=== PATIENT | female | born 1955 | race Caucasian/White ===

== ENCOUNTER → 2018-08-05 09:39 | Outpatient (CLI) | payer OTHER, SELFPAY ==
[2018-08-05 11:07] LABS: Creatinine Urine Random 81.6 mg/dL
[2018-08-05 11:10] LABS: Alanine Aminotransferase 29 IU/L (9-52); Albumin 4.1 g/dL (3.5-5.0); Albumin Globulin Ratio 1.4 (1.0-2.8); Alkaline Phosphatase 88 U/L (38-126); Aspartate Aminotransferase 24 IU/L (14-36); BUN Creatinine Ratio 13.3 (6-22); Blood Urea Nitrogen 12 mg/dL (7-17); Calcium 9.7 mg/dL (8.4-10.2); Carbon Dioxide 31 mmol/L (22-32); Chloride 98 mmol/L (98-107); Cholesterol 272 mg/dL (140-199); Estimated Glomerular Filt Rate > 60.0 mL/min (>60); Globulin 2.9 g/dL (1.7-4.1); Glucose 98 mg/dL (80-110); HDL Cholesterol 49 mg/dL (40-60); HEMOLYSIS < 15 (0-50); LDL Cholesterol Calculated 188 mg/dL (<100); Potassium 4.1 mmol/L (3.4-5.1); Sodium 139 mmol/L (137-145); Triglycerides 174 mg/dL (35-150)
[2018-08-05 11:13] LABS: Microalbumi Creatinin Ratio Ur 7.3 ug/mg CR (<30); Microalbumin Urine Random < 0.6 mg/dL (0-1.6)
== END ==
PROVIDERS: PCP Physician Assistant; Visit Provider Physician Assistant
DX: E78.2 Mixed hyperlipidemia (principal); I10 Essential (primary) hypertension
CPT/HCPCS: 36415; 80053; 80061; 82043; 82570

== ENCOUNTER → 2018-12-25 08:46 | Outpatient (CLI) | payer OTHER, SELFPAY ==
--- NOTE | 2018-12-25 08:47 | DI.MG.S_ITS ---
BILATERAL DIGITAL SCREENING MAMMOGRAM 3D/2D WITH CAD: 12/25/2018 CLINICAL: Routine screening. Family history of breast cancer. Comparison is made to exams dated: 09/05/2013 mammogram, 08/23/2014 mammogram, and 12/19/2016 mammogram - [facility]. There are scattered fibroglandular elements in both breasts. Current study was also evaluated with a Computer Aided Detection (CAD) system. There are mole markers on the right breast. There is a mole marker on the left breast. No significant masses, calcifications, or other findings are seen in either breast. There has been no significant interval change. IMPRESSION: NEGATIVE There is no mammographic evidence of malignancy. A 1 year screening mammogram is recommended. This exam was interpreted at Station ID: [id number]. NOTE: For mammograms, a report in lay terms will be sent to the patient. Approximately 15% of breast malignancies will not be visualized mammographically. In the management of a palpable breast mass, a negative mammogram must not discourage biopsy of a clinically suspicious lesion. Electronically Signed By: Edis shin/musa:12/27/2018 13:19:34 letter sent: Normal Exam ACR BI-RADS Category 1: Negative 3341F
== END ==
PROVIDERS: PCP Physician Assistant; Visit Provider Physician Assistant
DX: Z12.31 Encounter for screening mammogram for malignant neoplasm of breast (principal); Z80.3 Family history of malignant neoplasm of breast
CPT/HCPCS: 77063; 77067

== ENCOUNTER → 2019-04-02 07:54 | Outpatient (CLI) | payer OTHER, SELFPAY ==
[2019-04-02 09:28] LABS: Cholesterol 230 mg/dL (140-199); HDL Cholesterol 44 mg/dL (40-60); LDL Cholesterol Calculated 165 mg/dL (<100); Triglycerides 105 mg/dL (35-150)
== END ==
PROVIDERS: PCP Physician Assistant; Visit Provider Physician Assistant
DX: E78.2 Mixed hyperlipidemia (principal)
CPT/HCPCS: 36415; 80061

== ENCOUNTER → 2019-04-09 10:31 | Outpatient (CLI) | payer OTHER, SELFPAY ==
[2019-04-11 22:36] LABS: Fecal Immunochemical Test NOT DETECTED (NOT DETECTED)
== END ==
PROVIDERS: PCP Physician Assistant; Visit Provider Physician Assistant
DX: Z12.11 Encounter for screening for malignant neoplasm of colon (principal)
CPT/HCPCS: 82274

== ENCOUNTER → 2019-04-13 11:36 | Outpatient (CLI) | payer OTHER, SELFPAY ==
--- NOTE | 2019-04-13 | DI.CT.S_ITS ---
PROCEDURE: CT LUMBAR SPINE WO CON INDICATIONS: Low back pain TECHNIQUE: Noncontrast 3 mm thick sections acquired from the T12 level to the sacrum. Sagittal and coronal reformats were constructed. For radiation dose reduction, the following was used: automated exposure control. COMPARISON: [facility], CR, L-SPINE 2-3 VIEWS, 04/22/2017, 12:11. [facility], CR, L-SPINE 2-3 VIEWS, 06/18/2016, 17:18. [facility], MR, L-SPINE WITHOUT CONTRAST, 06/10/2016, 15:55. FINDINGS: Image quality: There is streak artifact associated with the metallic hardware. Bones: No acute vertebral body compression fractures. No suspicious lytic or blastic bony lesions. Central spinal caliber is of normal overall caliber. No pars defects. Postoperative changes are seen, with bilateral pedicle screws at the L3, L4, and L5 levels. The screws appear well placed. Vertical fixation rods are seen. Disc spacers are seen at L3-L4 and L4-L5. No findings of hardware failure or hardware loosening are seen. There has been removal of portions of the posterior elements. Mild retrolisthesis is seen at L1-L2 and L2-L3. T12-L1: No significant abnormality is seen. L1-L2: Mild to moderate loss of disc height and disc signal are seen. Bridging endplate osteophytes are seen. Moderate loss of disc height is seen. Loss of disc signal is seen. Khot-qp-[id number] bilateral neural foraminal narrowing is seen. Mild central canal narrowing is seen. L2-L3: There is moderate loss of disc height seen. Vacuum disc phenomenon is seen at this level. Moderate generalized disc bulge is seen. Clgc-cw-[id number] bilateral neural foraminal narrowing is seen, left worse than right. Moderate central canal narrowing is seen, as on series 3 image 50. The degree of central canal narrowing is progressed compared to 2017. L3-L4: Postoperative changes are seen at this level. Mild disc bulge is seen. Fsdj-fb-dvrjeoje facet hypertrophy is seen. The central canal is widely patent. The imaging findings are improved compared to the preoperative MRI. L4-L5: There are postoperative changes at this level. Mild bilateral neural foraminal narrowing is seen. The central canal is widely patent. This level is clearly improved compared to the preoperative MRI. L5-S1: Moderate loss of disc height is seen. Moderate disc bulge is seen. Relatively prominent endplate spurs are seen, with bridging worse on the right than on the left. There is moderate to severe bilateral neural foraminal narrowing seen, left worse than right (series 4 image 23). No significant central canal narrowing is seen. These degenerative changes are slightly progressed compared to 2017. Soft tissues: No retroperitoneal masses or hematomas. Visualized aorta is normal in caliber. Cholecystectomy clips are seen. IMPRESSION: L3-L5 postoperative hardware, without findings of failure or loosening. Improved degrees of narrowing at L3-L4 and L4-L5 compared to the preoperative 2017 MRI examination. Progression of degenerative change at L2-L3 and L5-S1 compared to 2017. Dictated by: Chris Newsome M.D. on 04/13/2019 at 15:35 Approved by: Chris Newsome M.D. on 04/13/2019 at 15:41
== END ==
PROVIDERS: PCP Physician Assistant; Visit Provider Physical Medicine & Rehabilitation Pain Medicine
DX: M54.5 Low back pain (principal); M48.061 Spinal stenosis, lumbar region without neurogenic claudication; M47.816 Spondylosis without myelopathy or radiculopathy, lumbar region; M47.817 Spondylosis without myelopathy or radiculopathy, lumbosacral region
CPT/HCPCS: 72131

== ENCOUNTER → 2020-07-26 09:21 | Outpatient (CLI) | payer OTHER, SELFPAY ==
--- NOTE | 2020-07-26 | DI.MG.S_ITS ---
BILATERAL DIGITAL DIAGNOSTIC MAMMOGRAM 3D/2D: 07/26/2020 CLINICAL: Right breast skin changes. Comparison is made to exams dated: 12/25/2018 mammogram - [facility], 12/19/2016 mammogram, and 08/23/2014 mammogram - [facility]. There are scattered fibroglandular elements in both breasts. No significant masses, calcifications, or other findings are seen in either breast. No skin thickening. IMPRESSION: NEGATIVE There is no abnormality seen in the right breast to correspond with the skin lesion in the upper aspect, however, clinical followup is recommended. There is no mammographic evidence of malignancy. A 1 year screening mammogram is recommended. This exam was interpreted at Station ID: [id number]. NOTE: For mammograms, a report in lay terms will be sent to the patient. Approximately 15% of breast malignancies will not be visualized mammographically. In the management of a palpable breast mass, a negative mammogram must not discourage biopsy of a clinically suspicious lesion. Electronically Signed By: Rogelio bright/:07/26/2020 10:03:51 letter sent: Clinical Evaluation ACR BI-RADS Category 1: Negative 3341F
== END ==
PROVIDERS: PCP Physician Assistant; Referring Provider Physician Assistant; Visit Provider Physician Assistant
DX: N64.89 Other specified disorders of breast (principal)
CPT/HCPCS: 77066; G0279

== ENCOUNTER → 2021-07-31 16:54 | Outpatient (CLI) | payer OTHER, SELFPAY ==
--- NOTE | 2021-07-31 16:56 | DI.MG.S_ITS ---
BILATERAL DIGITAL SCREENING MAMMOGRAM 3D/2D WITH CAD: 07/31/2021 CLINICAL: Routine screening. Family history of breast cancer. Comparison is made to exams dated: 07/26/2020 mammogram, 12/25/2018 mammogram - [facility], and 12/19/2016 mammogram - [facility]. There are scattered fibroglandular elements in both breasts. Current study was also evaluated with a Computer Aided Detection (CAD) system. No significant masses, calcifications, or other findings are seen in either breast. There has been no significant interval change. IMPRESSION: NEGATIVE There is no mammographic evidence of malignancy. A 1 year screening mammogram is recommended. This exam was interpreted at Station ID: [id number]. NOTE: For mammograms, a report in lay terms will be sent to the patient. Approximately 15% of breast malignancies will not be visualized mammographically. In the management of a palpable breast mass, a negative mammogram must not discourage biopsy of a clinically suspicious lesion. Electronically Signed By: Elder rey/musa:08/01/2021 08:52:59 letter sent: Normal Exam ACR BI-RADS Category 1: Negative 3341F
== END ==
PROVIDERS: PCP Physician Assistant; Referring Provider Physician Assistant; Visit Provider Physician Assistant
DX: Z12.31 Encounter for screening mammogram for malignant neoplasm of breast (principal)
CPT/HCPCS: 77063; 77067

== ENCOUNTER → 2022-08-05 15:27 | Outpatient (CLI) | payer MEDICARE, OTHER, SELFPAY ==
[2022-08-05 17:27] LABS: BUN Creatinine Ratio 18.3 (6-22); Blood Urea Nitrogen 17 mg/dL (7-17); Calcium 9.3 mg/dL (8.4-10.2); Carbon Dioxide 33 mmol/L (22-32); Chloride 96 mmol/L (98-107); Estimated Glomerular Filt Rate > 60 mL/min (>60); Glucose 91 mg/dL (80-110); HEMOLYSIS < 15 (0-50); Potassium 3.7 mmol/L (3.4-5.1); Sodium 134 mmol/L (137-145)
[2022-08-05 18:19] LABS: Creatinine Urine Random 42.1 mg/dL
[2022-08-05 18:28] LABS: Microalbumin Urine Random < 0.6 mg/dL (0-1.6)
== END ==
PROVIDERS: PCP Family Medicine; Referring Provider Family Medicine; Visit Provider Family Medicine
DX: I10 Essential (primary) hypertension (principal)
CPT/HCPCS: 36415; 80048; 82043; 82570

== ENCOUNTER → 2022-09-10 07:46 | Outpatient (CLI) | payer MEDICARE, OTHER, SELFPAY ==
--- NOTE | 2022-09-10 07:47 | DI.MG.S_ITS ---
BILATERAL DIGITAL SCREENING MAMMOGRAM 3D/2D WITH CAD: 09/10/2022 CLINICAL: Routine screening. Family history of breast cancer. Comparison is made to exams dated: 07/31/2021 mammogram, 07/26/2020 mammogram, and 12/25/2018 mammogram - [facility]. Both breasts are almost entirely fatty (category a/<25% glandular tissue). Current study was also evaluated with a Computer Aided Detection (CAD) system. No significant masses, calcifications, or other findings are seen in either breast. There has been no significant interval change. IMPRESSION: NEGATIVE There is no mammographic evidence of malignancy. A 1 year screening mammogram is recommended. Based on the Tyrer Cuzick model (a risk assessment model) the patient's lifetime risk is 4.1% and her 10 year risk is 2.0%. According to the ACR, ACS, and NCCN guidelines, an annual breast MRI exam along with mammogram is recommended if the patient's lifetime risk is 20% or greater. This exam was interpreted at Station ID: [id number]. NOTE: For mammograms, a report in lay terms will be sent to the patient. Approximately 15% of breast malignancies will not be visualized mammographically. In the management of a palpable breast mass, a negative mammogram must not discourage biopsy of a clinically suspicious lesion. Electronically Signed By: Shania casanova/musa:09/10/2022 13:13:28 letter sent: Normal Exam ACR BI-RADS Category 1: Negative 3341F
== END ==
PROVIDERS: PCP Family Medicine; Referring Provider Family Medicine; Visit Provider Family Medicine
DX: Z12.31 Encounter for screening mammogram for malignant neoplasm of breast (principal); Z80.3 Family history of malignant neoplasm of breast
CPT/HCPCS: 77063; 77067

== ENCOUNTER → 2023-01-30 11:00 | Outpatient (CLI) | payer MEDICARE, OTHER, SELFPAY ==
[2023-02-02 16:27] LABS: Fecal Immunochemical Test Negative (Negative)
== END ==
PROVIDERS: PCP Family Medicine; Referring Provider Family Medicine; Visit Provider Family Medicine
DX: Z12.11 Encounter for screening for malignant neoplasm of colon (principal)
CPT/HCPCS: 82274

== ENCOUNTER 2023-02-27 23:42 | Emergency (ER) | payer MEDICARE, OTHER, SELFPAY ==
[2023-02-27 23:53] VITALS: BP 180/77; PULSE 71; RESP 18; TEMP 36.6; O2SAT 96; BMI 45.8
[2023-02-28] VITALS (7 sets, daily range): BP systolic 184; BP diastolic 74; PULSE 57–65; RESP 18–19; O2SAT 94–99
[2023-02-28] MEDS: ONDANSETRON 4 MG/2 ML INJ IV (00:04)
[2023-02-28] MEDS: SODIUM CHLORIDE 0.9% 1,000 ML 1000 ML IV (00:04)
[2023-02-28 00:14] LABS: Add Manual Diff / Slide Review NO; Basophils Absolute Auto 100 /uL (0-100); Basophils Percent Auto 1.3 % (0-2); Eosinophils Absolute Auto 100 /uL (0-450); Eosinophils Percent Auto 0.6 % (2-4); Hemoglobin 14.7 g/dL (12.0-16.0); Lymphocytes Absolute Auto 1900 /uL (1100-4500); Lymphocytes Percent Auto 21.4 % (25-40); Mean Corpuscular HGB Conc 34.3 % (30-36); Mean Corpuscular Hemoglobin 29.2 PG (26-34); Mean Corpuscular Volume 85.3 fL (80-100); Monocytes Absolute Auto 600 /uL (0-900); Monocytes Percent Auto 6.5 % (3-14); Neutrophils Absolute Auto 6300 /uL (1500-7000); Neutrophils Percent Auto 70.2 % (50-75); Platelet Count 240 X10^3/uL (150-400); Red Blood Cell Count 5.04 X10^6/uL (4.0-5.2); Red Cell Distribution Width 13.2 % (11.6-14.8); White Blood Cell Count 8.9 X10^3/uL (4.5-11.0)
--- NOTE | 2023-02-28 00:16 | ED_ITS ---
HPI - Nausea/Vomiting/Diarrhea General Chief complaint: Nausea/Vomiting/Diarrhea Stated complaint: NAUSEA/ 2.5DAYS NOT EATING DRINKING DIZZY Time Seen by Provider: 02/27/23 23:55 Source: patient Mode of arrival: Wheelchair History of Present Illness HPI Narrative: Patient is a 67-year-old female who is here for evaluation approximately 2-1/2 days of nausea. No vomiting. She did have a small bowel movement yesterday. No urinary symptoms. No specific abdominal tenderness or distention. She states that any sort of eating or drinking makes her nausea worse. She just generally does not feel very well. No fevers. Patient states that she did burn the top of her mouth about a week ago when eating something that was hot. She stated that she now has some lesions on the top of her mouth and also on her upper lip. She has seen her dentist. Was given antibiotics but she states that when she does eat it does burn the top of her mouth. The lesions on her lip are not all that painful. Related Data Previous Rx's Medication Instructions Recorded gabapentin 300 mg capsule 300 mg PO BEDTIME #90 caps 08/05/22 hydrochlorothiazide 50 mg tablet 50 mg PO DAILY #90 tabs 08/05/22 irbesartan 150 mg tablet 150 mg PO QDAY #90 tabs 08/05/22 rosuvastatin 10 mg tablet 10 mg PO DAILY #90 tabs 02/06/23 acyclovir 400 mg tablet 400 mg PO TID 7 days #21 tabs 02/28/23 chlorhexidine gluconate 0.12 % 15 ml buccal DAILY #120 mL 02/28/23 mouthwash ondansetron 4 mg disintegrating 4 mg PO Q6H PRN nausea and 02/28/23 tablet vomiting #10 tabs Allergies Allergy/AdvReac Type Severity Reaction Status Date / Time codeine [CODEINE] AdvReac Severe nausea Verified 02/06/23 08:24 Review of Systems Constitutional Constitutional: Reports system reviewed and no additional complaints, except as documented ENT Ears, Nose, Mouth, and Throat: Reports system reviewed and no additional complaints, except as documented Cardiovascular Cardiovascular: Reports system reviewed and no additional complaints, except as documented Respiratory Respiratory: Reports system reviewed and no additional complaints, except as documented Gastrointestinal Gastrointestinal: Reports system reviewed and no additional complaints, except as documented Integumentary/Breasts Skin/Breast: Reports system reviewed and no additional complaints, except as documented Hematologic/Lymphatic On Anticoagulants: No Patient History Medical History Chicken pox Herpes (~1981) Surgical History (Updated 08/04/22 @ 18:33 by Lou Valdez) Anesthesia History of spinal fusion (~2016) Status post cholecystectomy (~1990) Status post delivery (09/15/88) Status post delivery (10/05/85) Family History (Updated 08/04/22 @ 18:34 by Lou Valdez) Father Cancer Mother Bowel obstruction Brother Cardiac arrest Social History Smoking Status: Never smoker second hand exposure: No alcohol intake: current (1 twice yearly ) substance use type: does not use Smoking Status: Never smoker Exam Initial Vital Signs Initial Vital Signs: Vital Signs Temperature 98 F 02/27/23 23:53 Pulse Rate 71 02/27/23 23:53 Respiratory Rate 18 02/27/23 23:53 Blood Pressure 180/77 H 02/27/23 23:53 Pulse Oximetry 96 02/27/23 23:53 Oxygen Delivery Method Room Air 02/27/23 23:53 Const General: comfortable and No ill appearing HENMT Mouth: other (See skin section) Resp Effort & Inspection: normal respiratory effort Auscultation: clear to auscultation bilaterally Cardio Rate: regular rate Rhythm: regular rhythm GI Inspection: normal to inspection and non-distended Palpation: soft Skin Other: Patient does lesions on the roof of her mouth and on her upper lip that are consistent with either aphthous ulcers or potentially even a cold sore/herpes infection. No surrounding erythema. Neuro General: patient alert, patient awake, patient oriented x3 and moves all extremities Extrem General: normal to inspection Course Orders Ordered: ED Orders 02/27/23 23:55 Complete Blood Count AUTO DIFF Stat Comprehensive Metabolic Panel Stat Lipase Stat 02/28/23 00:15 XR abdomen 1V Stat Discontinued Medications Sodium Chloride (Normal Saline 0.9%) 1,000 mls @ 1,000 mls/hr IV BOLUS ONE Stop: 02/28/23 00:55 Last Infusion: 02/28/23 02:24 Dose: Infused Documented By: Admin: 02/28/23 00:04 Dose: 1,000 mls/hr Documented By: Ketorolac Tromethamine (Ketorolac 30 Mg/Ml Vial) 30 mg IV NOW ONE Stop: 02/28/23 02:09 Last Admin: 02/28/23 02:12 Dose: 30 mg Documented By: Ondansetron HCl (Ondansetron 4 Mg/2 Ml Inj) 4 mg IV NOW ONE Stop: 02/27/23 23:57 Last Admin: 02/28/23 00:04 Dose: 4 mg Documented By: Ondansetron HCl (Ondansetron 4 Mg Odt Prepack) 1 bottle MISC SEEINSTR ONE Stop: 02/28/23 02:34 Last Admin: 02/28/23 02:45 Dose: 1 bottle Documented By: Vital Signs Vital signs: Vital Signs - 8 hr 02/27/23 23:53 02/28/23 00:16 02/28/23 00:37 Temperature 98 F Pulse Rate 71 63 65 Respiratory Rate 18 19 Blood Pressure 180/77 H Pulse Oximetry 96 96 99 Oxygen Delivery Method Room Air 02/28/23 00:39 02/28/23 00:39 02/28/23 01:00 Temperature Pulse Rate 62 57 L Respiratory Rate Blood Pressure 184/74 H Pulse Oximetry 97 94 Oxygen Delivery Method 02/28/23 01:30 02/28/23 02:00 02/28/23 02:30 Temperature Pulse Rate 63 60 59 L Respiratory Rate 18 Blood Pressure Pulse Oximetry 95 94 95 Oxygen Delivery Method MDM - Nausea/Vomiting/Diarrhea Lab Data Attestation: I reviewed the patient's lab results. 02/27/23 23:55 02/28/23 00:46 Labs: Lab Results 02/27/23 02/28/23 Range/Units 23:55 00:46 WBC 8.9 (4.5-11.0) X10^3/uL RBC 5.04 (4.0-5.2) X10^6/uL Hgb 14.7 (12.0-16.0) g/dL Hct 43.0 (36-46) % MCV 85.3 (80-100) fL MCH 29.2 (26-34) PG MCHC 34.3 (30-36) % RDW 13.2 (11.6-14.8) % Plt Count 240 (150-400) X10^3/uL Neut % (Auto) 70.2 (50-75) % Lymph % (Auto) 21.4 L (25-40) % Dodge % (Auto) 6.5 (3-14) % Eos % (Auto) 0.6 L (2-4) % Baso % (Auto) 1.3 (0-2) % Neut # (Auto) 6300 (0835-6223) /uL Lymph # (Auto) 1900 (8948-3882) /uL Dodge # (Auto) 600 (0-900) /uL Eos # (Auto) 100 (0-450) /uL Baso # (Auto) 100 (0-100) /uL Sodium 130 L (137-145) mmol/L Potassium 4.0 (3.4-5.1) mmol/L Chloride 92 L (98-107) mmol/L Carbon Dioxide 28 (22-32) mmol/L BUN 14 (7-17) mg/dL Creatinine 0.90 (0.52-1.04) mg/dL Estimated GFR > 60 (>60) mL/min BUN/Creatinine Ratio 15.6 (6-22) Glucose 109 (80-110) mg/dL Calcium 9.7 (8.4-10.2) mg/dL Total Bilirubin 0.8 (0.2-1.3) mg/dL AST 34 (14-36) IU/L ALT 38 H (<35) IU/L Alkaline Phosphatase 83 (38-126) U/L Total Protein 7.6 (6.3-8.2) g/dL Albumin 4.2 (3.5-5.0) g/dL Globulin 3.4 (1.7-4.1) g/dL Albumin/Globulin Ratio 1.2 (1.0-2.8) Lipase 32 (23-300) U/L Imaging Data Abdominal x-ray: Radiologist's Impression: PROCEDURE: XR ABDOMEN 1V INDICATIONS: NVD, dizziness x 3 days. TECHNIQUE: One view of the abdomen acquired. COMPARISON: None. FINDINGS: Surgical changes and devices: Surgical fusion hardware in lower lumbar spine at L3 through L5 levels are seen. Bowel: Bowel gas pattern is nonobstructive. Mild fecal stasis in the colon is seen extending to sigmoid colon and rectum. No gross pneumoperitoneum. Soft tissues: No suspicious abdominal calcifications. Visualized solid organ contours appear normal in size. Bones: No suspicious bony lesions. IMPRESSION: No evidence of bowel obstruction or gross free air. Mild constipation. MDM Narrative Medical decision making narrative: Labs are unremarkable. She does have lesions in her mouth that are not consistent with a burn but more consistent with herpes lesions. She states she is never had herpes in the past. I have some suspicion as to whether or not the burn in her mouth actually triggered the outbreak. She is also on medications (antibiotics and pain medications) that could be causing her nausea as well. Her nausea started approximately 2 days after starting the antibiotics. States she was placed on antibiotics by her dentist because there was some concern that maybe there was a dental infection. She has a soft abdomen. There are no indication for abdominal imaging other than the x-ray which showed no acute pathology. She attempted to drink fluids. This caused her to have fairly severe dental pain which then caused her to have the nausea. She did feel somewhat better after the Toradol. We discussed that potentially the pain medication and antibiotics could be causing her symptoms. Offered testing for the flu but she declined. Plan will be is to have her take the pain medication that she has at home sparingly. Will have her continue to do the antibiotics. Given the appearance of the lesions in her mouth will start her on acyclovir. Also will provide a new prescription for the Zofran as the 1 that she has at home was approximately 5 years old. Has no indication for admission to the hospital. She was given return precautions and instructions to follow-up with her dentist. She expressed understanding and agreement. Discharge Plan Departure Patient Disposition: Home Clinical Impression: Nausea, Cold sore Instructions: DI for Nausea -- Adult Activity Restrictions/Additional Instructions: Use the nausea medication as needed. You can take Tylenol/ibuprofen for discomfort and if that is not working then use your pain medication that you have at home. Recommend you continue to take all of your medications as directed. You do need a follow-up with a dentist. Return to the emergency department for new symptoms. Prescriptions: New ondansetron 4 mg tablet,disintegrating 4 mg PO Q6H PRN (Reason: nausea and vomiting) Qty: 10 0RF acyclovir 400 mg tablet 400 mg PO TID 7 Days Qty: 21 0RF chlorhexidine gluconate 0.12 % mouthwash 15 ml buccal DAILY Qty: 120 0RF No Action rosuvastatin 10 mg tablet 10 mg PO DAILY Qty: 90 3RF hydrochlorothiazide 50 mg tablet 50 mg PO DAILY Qty: 90 1RF irbesartan 150 mg tablet 150 mg PO QDAY Qty: 90 1RF gabapentin 300 mg capsule 300 mg PO BEDTIME Qty: 90 1RF Referrals: Marilee Sanon DO [Primary Care Provider] - Stand Alone Forms: Patient Portal/API
[2023-02-28 01:02] LABS: Alanine Aminotransferase 38 IU/L (<35); Albumin 4.2 g/dL (3.5-5.0); Albumin Globulin Ratio 1.2 (1.0-2.8); Alkaline Phosphatase 83 U/L (38-126); Aspartate Aminotransferase 34 IU/L (14-36); BUN Creatinine Ratio 15.6 (6-22); Bilirubin Total 0.8 mg/dL (0.2-1.3); Blood Urea Nitrogen 14 mg/dL (7-17); Calcium 9.7 mg/dL (8.4-10.2); Carbon Dioxide 28 mmol/L (22-32); Chloride 92 mmol/L (98-107); Estimated Glomerular Filt Rate > 60 mL/min (>60); Globulin 3.4 g/dL (1.7-4.1); Glucose 109 mg/dL (80-110); HEMOLYSIS < 15 (0-50); Lipase 32 U/L (23-300); Sodium 130 mmol/L (137-145); Total Protein 7.6 g/dL (6.3-8.2)
[2023-02-28] MEDS: KETOROLAC 30 MG/ML VIAL IV (02:12)
[2023-02-28] MEDS: ONDANSETRON 4 MG ODT PREPACK 1 BOTTLE MISC (02:45)
== END 2023-02-28 02:52 | disposition home or self-care (01) ==
PROVIDERS: Emergency Provider Emergency Medicine; PCP Family Medicine
DX: B00.1 Herpesviral vesicular dermatitis (principal); R11.0 Nausea
CPT/HCPCS: 36415; 74018; 80053; 83690; 85025; 96361; 96374; 96375; 99284; J1885; J2405

== ENCOUNTER → 2023-07-14 09:02 | Outpatient (CLI) | payer MEDICARE, OTHER, SELFPAY ==
[2023-07-14 10:16] LABS: Cholesterol 147 mg/dL (140-199); HDL Cholesterol 60 mg/dL (40-60); LDL Cholesterol Calculated 63 mg/dL (<100); Triglycerides 120 mg/dL (35-150)
== END ==
PROVIDERS: PCP Family Medicine; Referring Provider Family Medicine; Visit Provider Family Medicine
DX: E78.2 Mixed hyperlipidemia (principal)
CPT/HCPCS: 36415; 80061

== ENCOUNTER → 2023-11-23 07:41 | Outpatient (CLI) | payer MEDICARE, OTHER, SELFPAY ==
--- NOTE | 2023-11-23 07:43 | DI.MG.S_ITS ---
BILATERAL DIGITAL SCREENING MAMMOGRAM 3D/2D WITH CAD: 11/23/2023 CLINICAL: Routine screening. Family history of breast cancer. Comparison is made to exams dated: 09/10/2022 mammogram, 07/31/2021 mammogram, and 07/26/2020 mammogram - [facility]. Both breasts are almost entirely fatty (category a/<25% glandular tissue). Current study was also evaluated with a Computer Aided Detection (CAD) system. No significant masses, calcifications, or other findings are seen in either breast. There has been no significant interval change. IMPRESSION: NEGATIVE There is no mammographic evidence of malignancy. A 1 year screening mammogram is recommended. Based on the Tyrer Cuzick model (a risk assessment model) the patient's lifetime risk is 3.9% and her 10 year risk is 2.0%. According to the ACR, ACS, and NCCN guidelines, an annual breast MRI exam along with mammogram is recommended if the patient's lifetime risk is 20% or greater. This exam was interpreted at Station ID: [id number]. NOTE: For mammograms, a report in lay terms will be sent to the patient. Approximately 15% of breast malignancies will not be visualized mammographically. In the management of a palpable breast mass, a negative mammogram must not discourage biopsy of a clinically suspicious lesion. Electronically Signed By: Shania casanova/musa:11/23/2023 11:27:09 letter sent: Normal Exam ACR BI-RADS Category 1: Negative 3341F
== END ==
LOC: MAMMO 07:42
PROVIDERS: PCP Family Medicine; Referring Provider Family Medicine; Visit Provider Family Medicine
DX: Z12.31 Encounter for screening mammogram for malignant neoplasm of breast (principal); Z80.3 Family history of malignant neoplasm of breast; R92.313 Mammographic fatty tissue density, bilateral breasts
CPT/HCPCS: 77063; 77067

== ENCOUNTER → 2024-08-03 07:19 | Outpatient (CLI) | payer MEDICARE, OTHER, SELFPAY ==
[2024-08-03 08:17] LABS: Alanine Aminotransferase 27 IU/L (<35); Albumin 4.3 g/dL (3.5-5.0); Albumin Globulin Ratio 1.7 (1.0-2.8); Alkaline Phosphatase 80 U/L (38-126); Aspartate Aminotransferase 33 IU/L (14-36); BUN Creatinine Ratio 17.4 (6-22); Bilirubin Total 0.8 mg/dL (0.2-1.3); Blood Urea Nitrogen 19 mg/dL (7-17); Calcium 9.8 mg/dL (8.4-10.2); Carbon Dioxide 29 mmol/L (22-32); Chloride 94 mmol/L (98-107); Cholesterol 123 mg/dL (140-199); Estimated Glomerular Filt Rate 56 mL/min (>60); Globulin 2.6 g/dL (1.7-4.1); Glucose 113 mg/dL (80-110); HDL Cholesterol 57 mg/dL (40-60); HEMOLYSIS < 15 (0-50); LDL Cholesterol Calculated 48 mg/dL (<100); Potassium 4.1 mmol/L (3.4-5.1); Sodium 133 mmol/L (137-145); Total Protein 6.9 g/dL (6.3-8.2); Triglycerides 89 mg/dL (35-150)
== END ==
PROVIDERS: PCP Family Medicine; Referring Provider Family Medicine; Visit Provider Family Medicine
DX: I10 Essential (primary) hypertension (principal); E66.01 Morbid (severe) obesity due to excess calories; Z68.42 Body mass index [BMI] 45.0-49.9, adult; E78.2 Mixed hyperlipidemia
CPT/HCPCS: 36415; 80053; 80061

== ENCOUNTER → 2024-12-27 12:36 | Outpatient (CLI) | payer MEDICARE, OTHER, SELFPAY ==
--- NOTE | 2024-12-27 12:38 | DI.MG.S_ITS ---
MM screening mammo BI: 12/27/2024. BI-RADS: 1 CLINICAL: 69-year old female for bilateral screening mammogram. Tyrer-Cuzick lifetime risk of 6.5%. No personal or first-degree family history of breast cancer. PRIOR EXAMS 11/23/2023, 09/10/2022, 07/31/2021, 07/26/2020. MAMMOGRAPHY TECHNIQUE: 2D and 3D (tomosynthesis) digital mammographic views obtained, with additional images as needed for full coverage. Current study was also evaluated with a Computer Aided Detection (CAD) system. DENSITY B. There are scattered areas of fibroglandular density. MAMMOGRAPHY FINDINGS Bilateral: No suspicious mass, asymmetry, microcalcification, or other abnormality seen. IMPRESSION: * No evidence of malignancy. RECOMMENDATIONS Bilateral * Annual screening mammography. OVERALL ASSESSMENT CATEGORY BI-RADS-1: Negative. The [employer] recommends annual screening mammography beginning at age 40 for women with average risk of breast cancer. ELECTRONICALLY SIGNED: Alla Quiroz M.D. on 12/28/2024 at 04:08:07 PM PT Interpreting Station ID: [id number]
== END ==
LOC: MAMMO 12:37
PROVIDERS: PCP Family Medicine; Referring Provider Family Medicine; Visit Provider Family Medicine
DX: Z12.31 Encounter for screening mammogram for malignant neoplasm of breast (principal); Z12.11 Encounter for screening for malignant neoplasm of colon
CPT/HCPCS: 77063; 77067